=== PATIENT | male | born 1970 | race Caucasian/White ===

== ENCOUNTER → 2018-05-05 15:00 | Outpatient (CLI) | payer OTHER, SELFPAY | PROVIDERS: Family Provider Family Medicine; PCP Orthopaedic Surgery | DX: Z23 Encounter for immunization (principal) | CPT/HCPCS: 90471; 90686 ==

== ENCOUNTER → 2018-11-09 09:59 | Outpatient (CLI) | payer OTHER, MEDICAID, SELFPAY ==
[2018-11-09 10:56] LABS: Add Manual Diff / Slide Review NO; Basophils Absolute Auto 100 /uL (0-100); Basophils Percent Auto 0.6 % (0-2); Eosinophils Absolute Auto 400 /uL (0-450); Eosinophils Percent Auto 4.3 % (2-4); Hematocrit 41.6 % (41-53); Hemoglobin 13.5 g/dL (13.5-17.5); Lymphocytes Absolute Auto 2900 /uL (1100-4500); Lymphocytes Percent Auto 31.6 % (25-40); Mean Corpuscular HGB Conc 32.4 % (30-36); Mean Corpuscular Hemoglobin 28.2 PG (26-34); Monocytes Absolute Auto 700 /uL (0-900); Monocytes Percent Auto 7.4 % (3-14); Neutrophils Absolute Auto 5100 /uL (1500-7000); Neutrophils Percent Auto 56.1 % (50-75); Platelet Count 190 X10^3/uL (150-400); Red Blood Cell Count 4.78 X10^6/uL (4.5-5.9); Red Cell Distribution Width 14.3 % (11.6-14.8); White Blood Cell Count 9.1 X10^3/uL (4.5-11.0)
[2018-11-09 11:13] LABS: Alanine Aminotransferase 83 IU/L (21-72); Albumin 4.6 g/dL (3.5-5.0); Albumin Globulin Ratio 1.4 (1.0-2.8); Alkaline Phosphatase 77 U/L (38-126); Aspartate Aminotransferase 56 IU/L (17-59); BUN Creatinine Ratio 14.4 (6-22); Bilirubin Total 0.5 mg/dL (0.2-1.3); Blood Urea Nitrogen 13 mg/dL (9-20); Calcium 9.4 mg/dL (8.4-10.2); Carbon Dioxide 27 mmol/L (22-32); Chloride 102 mmol/L (98-107); Cholesterol 137 mg/dL (140-199); Estimated Glomerular Filt Rate > 60.0 mL/min (>60); Globulin 3.4 g/dL (1.7-4.1); Glucose 104 mg/dL (70-100); HDL Cholesterol 37 mg/dL (40-60); HEMOLYSIS < 15 (0-50); LDL Cholesterol Calculated 79 mg/dL (<100); Potassium 4.3 mmol/L (3.4-5.1); Sodium 140 mmol/L (137-145); Triglycerides 107 mg/dL (35-150)
[2018-11-09 11:27] LABS: Creatinine Urine Random 232.3 mg/dL
[2018-11-09 11:29] LABS: Microalbumi Creatinin Ratio Ur 3.4 ug/mg CR (<30); Microalbumin Urine Random 0.8 mg/dL (0-1.6)
[2018-11-09 11:52] LABS: TSH w/ Reflex to FT4 1.64 uIU/mL (0.47-4.68)
[2018-11-09 14:36] LABS: Hemoglobin A1C% w Est Avg Glu 7.2 % (4.0-6.0)
== END ==
PROVIDERS: PCP Family Medicine; Visit Provider Family Medicine
DX: E78.00 Pure hypercholesterolemia, unspecified (principal); I10 Essential (primary) hypertension; R73.01 Impaired fasting glucose; R94.5 Abnormal results of liver function studies; R73.9 Hyperglycemia, unspecified
CPT/HCPCS: 36415; 80053; 80061; 82043; 82570; 83036; 84443; 85025

== ENCOUNTER → 2019-02-08 09:32 | Outpatient (CLI) | payer OTHER, MEDICAID, SELFPAY ==
[2019-02-08 10:13] LABS: Hemoglobin A1C% w Est Avg Glu 5.6 % (4.0-6.0)
== END ==
PROVIDERS: PCP Family Medicine; Visit Provider Family Medicine
DX: E11.9 Type 2 diabetes mellitus without complications (principal)
CPT/HCPCS: 36415; 83036

== ENCOUNTER → 2019-04-12 09:02 | Outpatient (CLI) | payer OTHER, MEDICAID, SELFPAY | PROVIDERS: PCP Family Medicine; Visit Provider Family Medicine | DX: E11.9 Type 2 diabetes mellitus without complications (principal) | CPT/HCPCS: 36415; 83036 ==

== ENCOUNTER → 2019-07-12 17:23 | Outpatient (CLI) | payer OTHER, SELFPAY ==
[2019-07-12 18:17] LABS: BUN Creatinine Ratio 18.8 (6-22); Blood Urea Nitrogen 15 mg/dL (9-20); Calcium 10.2 mg/dL (8.4-10.2); Carbon Dioxide 26 mmol/L (22-32); Chloride 102 mmol/L (98-107); Estimated Glomerular Filt Rate > 60.0 mL/min (>60); Glucose 148 mg/dL (70-100); HEMOLYSIS < 15 (0-50); Potassium 4.1 mmol/L (3.4-5.1); Sodium 139 mmol/L (137-145)
[2019-07-12 18:19] LABS: Hemoglobin A1C% w Est Avg Glu 7.7 % (4.0-6.0)
== END ==
PROVIDERS: PCP Family Medicine; Visit Provider Family Medicine
DX: E11.9 Type 2 diabetes mellitus without complications (principal); E66.01 Morbid (severe) obesity due to excess calories
CPT/HCPCS: 36415; 80048; 83036

== ENCOUNTER 2019-10-04 10:41 | Emergency (ER) | payer OTHER, SELFPAY ==
[2019-10-04 10:56] VITALS: BP 163/74; PULSE 81; RESP 18; TEMP 36.4; O2SAT 96; BMI 47.5
--- NOTE | 2019-10-04 11:56 | ED.BACK ---
HPI - Back Pain/Injury <CHIKIS Pruett - Last Filed: 10/04/19 13:45> General Chief Complaint: Back Pain/Injury Stated Complaint: weakness in legs/back pain Time Seen by Provider: 10/04/19 11:23 Source: patient Mode of arrival: Ambulatory Limitations: no limitations History of Present Illness HPI Narrative: This is a 49-year-old gentleman, nonsmoker, who presents to ED with family with chief complain of bilateral leg weakness. Patient has history of low back injury and had laminectomy and fusion done on L3-S1 [place] [address] Beaver. Patient reports he had intense physical therapy completed after then. Patient recently returned to work in March 2019 and has been having bilateral weakness about 2 weeks ago when he woke up in the morning. This had improved about 4-5 hours after on that morning and was able to ambulate. Patient has an appointment with Dr. méndez on 10/13/19 for an evaluation. He was instructed if he has weakness again to going into ED by Dr. worthington clinic nurse. Patient had another episode of bilateral weakness since 5:00 a.m. in the morning this morning and almost fell twice. Patient reports intact sensation, denies incontinence for urinary or stool. Patient reports increasing back pain with lifting legs which is causing bilateral inner thigh discomfort. Patient is able to gentle early rotate his upper body and forward flex and extend his back but with decreased range of motion. Patient also reports intermittent right upper thigh tremors. Patient reports he is ambulatory but noticed bilateral foot dragging and has to lean forward. Patient reports a pain increases is walking on a hard floor and sitting on chair prolonged period. Pain improves with resting on a recliner not for a prolonged time. Patient denies fever, chills, nausea or vomiting. Patient has history of hypertension, diabetes type 2, hyper cholesterol, depression and anxiety. Related Data Home Medications Medication Instructions Recorded Confirmed aspirin 81 mg tablet,delayed 81 mg PO DAILY 11/09/18 10/04/19 release Resmed Airsense 10 CPAP #1 ea 01/04/19 10/04/19 atorvastatin 40 mg PO BEDTIME 10/04/19 10/04/19 hydroxyzine HCl 50 - 100 mg PO BEDTIME PRN 10/04/19 10/04/19 sertraline 50 mg PO QPM 10/04/19 10/04/19 Previous Rx's Medication Instructions Recorded amlodipine 10 mg tablet 10 mg PO DAILY #90 tab 07/12/19 losartan 50 mg tablet 50 mg PO BID #180 tab 07/12/19 metformin 500 mg tablet 500 mg PO BID #60 tab 07/26/19 cyclobenzaprine 10 mg PO BID PRN #20 tab 10/04/19 lidocaine 2 patch TOP Q24H #30 each 10/04/19 prednisone 40 mg PO DAILY 5 Days #8 tab 10/04/19 Allergies Allergy/AdvReac Type Severity Reaction Status Date / Time No Known Drug Allergies Allergy Verified 10/04/19 10:56 Review of Systems <CHIKIS Pruett - Last Filed: 10/04/19 13:45> Review of Systems Narrative: General: Denies fever, chills, fatigue, malaise, sweats. HEENT: Denies sinus pain, ear pain, sore throat, difficulty swallowing, dizziness. Respiratory: Denies dyspnea, cough, wheezing, hemoptysis, sputum. Cardiovascular: Denies chest pain, palpitations, orthopnea, edema. Gastrointestinal: Denies nausea, vomiting, abdominal pain, diarrhea, constipation, melena. : Denies dysuria, frequency, incontinence, hematuria, urinary retention. Musculoskeletal: See HPI Skin: Denies rash, skin lesions, or other. Neurologic: Denies weakness, headache, numbness, change in speech, confusion, seizures, incoordination. Psychiatric: No concerning psychosocial issues. 12-point review of systems is negative except for those stated above. Patient History <CHIKIS Pruett - Last Filed: 10/04/19 13:45> Medical History Coronary artery disease involving coronary bypass graft of [place] heart without angina pectoris (Inactive 03/27/16) Essential hypertension (Chronic 09/14/13) Lumbar radiculopathy (Chronic) Morbid obesity with body mass index of 40.0-49.9 (Chronic) Obstructive sleep apnea of adult (Chronic) Pure hypercholesterolemia (Chronic 03/27/16) Status post lumbar laminectomy (Resolved 03/27/16) Steatosis of liver (Chronic 09/14/13) Surgical History History of vasectomy Status post coronary artery bypass graft Family History Father Diabetes mellitus Gout Hypertension Social History marital status: details: to Yue, lives in [place] number of children: 2 household members: spouse and children lives independently: Yes caregiver/support person: No housing: house education level: college occupational status: employed current occupational exposures/hazards: Yes ([employer]) Smoking Status: Never smoker alcohol intake: never substance use type: does not use Smoking Status: Never smoker Exam <CHIKIS Pruett - Last Filed: 10/04/19 13:45> Narrative Exam Narrative: GEN: Alert, oriented x 3, well appearing and nourished, and in no acute distress. Head: Normal cephalic, atraumatic. No scalp or temporal tenderness, palpable mass or rash. EYES: Pupils are equal, round, and reactive to light and accommodation. Extraocular muscles are intact bilaterally. There is no subconjunctival hemorrhage, exudate and sclera non-icteric. ENT: Bilateral auditory canals and tympanic membranes clear. Hearing grossly intact. Nose without bleeding, purulent discharge or deviation. Facial sinuses nontender to palpate. Mucous membrane moist, no mucosal lesion. Throat without erythema, tonsillar hypertrophy or exudate. Uvula in midline, airway patent. Neck: Trachea in midline. No JVD, non-tender without lymphadenopathy. No masses or thyroid megaly. Supple, non-tender and no meningeal signs. CARDIAC: Normal regular rate and rhythm without murmurs, gallops, or rubs. No chest wall tenderness. No peripheral edema, cyanosis or pallor. Capillary refill is less than 2 seconds. RESPIRATORY: Lungs are clear to auscultate bilaterally. No cough, wheezes, rales, or rhonchi. No stridor, respiratory distress, increase work of breathing, or accessary muscle used. ABD: Abdomen soft, nontender and non-distended. No guarding or rebound tenderness to palpate. Bowel sounds are normal in all 4 quadrants. There is no palpable masses or organomegaly. EXT: Full painless ROM of all extremities with no loss of sensation, strength, effusion or edema. SKIN: Warm, dry, normal color for patient. No erythema, lesions or rash over visible areas. NEUROLOGICAL: Alert and oriented to place, time and person. Sensation and motor function intact bilaterally. No facial droops, dysphasia. PSYCHIATRIC: Good judgement and reason, without hallucinations, abnormal affect or abnormal behaviors during the examination. Patient is not suicidal. Initial Vital Signs Initial Vital Signs: Vital Signs Temperature 97.6 F 10/04/19 10:56 Pulse Rate 81 10/04/19 10:56 Respiratory Rate 18 10/04/19 10:56 Blood Pressure 163/74 H 10/04/19 10:56 Pulse Oximetry 96 10/04/19 10:56 Back/Spine/Pelvis Back: normal to inspection Cervical Spine: cervical ROM normal Thoracic/Lumbar Spine: thoracic and lumbar spine normal to inspection, No mass, pain with thoraco-lumbar ROM, paraspinal tenderness (Lumbar spine, right-sided middle thoracic), thoraco-lumbar ROM limited (Due to discomfort, patient was able to rotate, extend, forward bend), No thoraco-lumbar spasm, thoracic spinal tenderness (From upper thoracic to lumbar), lumbar spinal tenderness, straight leg raise positive (This has caused discomfort in bilateral inner thighs with sharp pain) and other (Old surgical scar on lumbar region without signs and symptoms for infection) Other: Bilateral patella tendon reflex intact. Mild decreased strength on bilateral foot, ankle and upper legs. Sensation on bilateral leg intact. <Geoffrey Llanes DO - Last Filed: 10/04/19 14:18> Initial Vital Signs Initial Vital Signs: Vital Signs Temperature 97.6 F 10/04/19 10:56 Pulse Rate 81 10/04/19 10:56 Respiratory Rate 18 10/04/19 10:56 Blood Pressure 163/74 H 10/04/19 10:56 Pulse Oximetry 96 10/04/19 10:56 Scores <CHIKIS Pruett - Last Filed: 10/04/19 13:45> GCS [place] coma scale eye opening: Spontaneous Paulie coma scale verbal response: Orientated [place] coma scale motor response: Obey commands Paulie coma scale total score: 15 Course <CHIKIS Pruett - Last Filed: 10/04/19 13:45> Orders Ordered: Discontinued Medications Cyclobenzaprine HCl (Flexeril) 10 mg PO NOW ONE Stop: 10/04/19 12:16 Last Admin: 10/04/19 13:02 Dose: 10 mg Documented by: DANILO Lidocaine (Lidoderm) 2 each TOP NOW ONE Stop: 10/04/19 12:16 Last Admin: 10/04/19 13:01 Dose: 2 each Documented by: DANILO Prednisone (Deltasone) 40 mg PO NOW ONE Stop: 10/04/19 12:16 Last Admin: 10/04/19 13:02 Dose: 40 mg Documented by: DANILO Consultations Consultation #1: Dr. Beaver contacted for consult. Plan-treat his symptoms and prednisone for a short course and f/u with Dr. Beaver. Time: 12:20 Vital Signs Vital signs: Vital Signs - 8 hr 10/04/19 10:56 10/04/19 12:47 Temperature 97.6 F Pulse Rate 81 64 Respiratory Rate 18 18 Blood Pressure 163/74 H Blood Pressure [Left Arm] 129/78 Pulse Oximetry 96 95 <Geoffrey Llanes DO - Last Filed: 10/04/19 14:18> Orders Ordered: Discontinued Medications Cyclobenzaprine HCl (Flexeril) 10 mg PO NOW ONE Stop: 10/04/19 12:16 Last Admin: 10/04/19 13:02 Dose: 10 mg Documented by: DANILO Lidocaine (Lidoderm) 2 each TOP NOW ONE Stop: 10/04/19 12:16 Last Admin: 10/04/19 13:01 Dose: 2 each Documented by: DANILO Prednisone (Deltasone) 40 mg PO NOW ONE Stop: 10/04/19 12:16 Last Admin: 10/04/19 13:02 Dose: 40 mg Documented by: DANILO Vital Signs Vital signs: Vital Signs - 8 hr 10/04/19 10:56 10/04/19 12:47 Temperature 97.6 F Pulse Rate 81 64 Respiratory Rate 18 18 Blood Pressure 163/74 H Blood Pressure [Left Arm] 129/78 Pulse Oximetry 96 95 MDM - Back Pain/Injury <CHIKIS Pruett - Last Filed: 10/04/19 13:45> Differential Diagnosis Differential diagnosis: Likely lumbar radiculopathy, strain of lumbar region and other (Herniated lumbar disc) Medical Records Attestation: I reviewed the patient's medical records. MDM Narrative Medical decision making narrative: This is a 49-year-old male who has history of L3-S1 fusion and laminectomy in 2016. Patient recently has been having low back discomfort, spasming, bilateral weakness to his lower extremities which started 2 weeks ago but ambulatory today with dragging of foot bilaterally. Patient had return to work in March 2019. Patient denies recent injury, trauma. Patient denies constitutional symptoms. Patient denies incontinence for urine or stool, sensation involvement. Attempted to get MRI test on lumbar without IV contrast but due to patient's weight is overt limit this has been deferred. We discussed treating his symptoms for discomfort, spasm with medications including prednisone, Flexeril, and lidocaine patch and to follow-up with Dr. Beaver as scheduled or sooner and possible MRI test at [facility] imaging facility before to see Dr. Beaver. Dr. Beaver has contacted the the plan and he agrees. Informed patient and spouse regarding the plan and they agree and verbalized understanding. Return precautions were discussed with the patient. Discharge Plan Departure Patient Disposition: Home Clinical Impression: Lumbar radiculopathy Lower extremity weakness Qualifiers: Laterality: bilateral Qualified Code(s): R29.898 - Other symptoms and signs involving the musculoskeletal system Discharge Date/Time: 10/04/19 13:10 Instructions: DI for Low Back Pain, DI for Back Spasm Activity Restrictions/Additional Instructions: You have been diagnosed with [low back pain, spasm, and bilateral leg weakness. I spoke with Dr. Beaver today and he agrees with plan-treat your symptoms with medications including a short course of steroid]. What to do: *Take your medications as directed. Flexeril may cause drowsiness so please take precautions. Please continue to take Tylenol 652 1000 mg up to 4 times a day. Ibuprofen 400 mg to 800 mg up to 3 times a day with food to decrease inflammation and for pain. Lidocaine patch stays on 12 hours and off for 12 hours. Steroids daily for next 5 days. And we discussed this medications side effects. This medication has been transmitted to [facility] in and [place]. *Follow up with your primary care provider in 2-3 days, call for an appointment. Please contact Dr. worthington office if you can be seen sooner than . Let them know you were seen in the ED and that we asked you to be seen in follow up. *Return to ED if you have any new, worsening, or concerning symptoms, such as [fever, chills, nausea, vomiting, increasing weakness/sensation, incontinence, chest pain, breathing difficulty, or any acute concerns.]. Prescriptions: New cyclobenzaprine 10 mg tablet 10 mg PO BID PRN (Reason: muscle spasm) Qty: 20 RF: 0 prednisone 20 mg tablet 40 mg PO DAILY 5 Days Qty: 8 RF: 0 lidocaine 5 % adhesive patch,medicated 2 patch TOP Q24H Qty: 30 RF: 0 No Action metformin 500 mg tablet 500 mg PO BID Qty: 60 RF: 3 losartan 50 mg tablet 50 mg PO BID Qty: 180 RF: 3 amlodipine 10 mg tablet 10 mg PO DAILY Qty: 90 RF: 3 aspirin [Adult Low Dose Aspirin] 81 mg tablet,delayed release (DR/EC) 81 mg PO DAILY RF: 0 hydroxyzine HCl 25 mg tablet 50 - 100 mg PO BEDTIME PRN (Reason: Anxiety) RF: 0 atorvastatin 40 mg tablet 40 mg PO BEDTIME RF: 0 sertraline 50 mg tablet 50 mg PO QPM RF: 0 (DME) Resmed Airsense 10 CPAP Qty: 1 RF: 0 Referrals: Fernando Wynn MD [Primary Care Provider] - <Geoffrey Llanes, DO - Last Filed: 10/04/19 14:18> Sign Out Provider Sign Out Attestation: Dr Llanes Co-Sign Statement: I was available for consultation during this patient's emergency department visit. This chart is signed by myself for administrative purposes only. I did not have direct contact with this patient during this visit. They were seen independently by the APC.
[2019-10-04 12:47] VITALS: BP 129/78; PULSE 64; RESP 18; O2SAT 95
[2019-10-04] MEDS: LIDOCAINE PATCH 1 EACH ADH..PATCH 2 EACH TOP (13:01)
[2019-10-04] MEDS: predniSONE 20 MG TABLET 40 MG PO (13:02)
[2019-10-04] MEDS: CYCLOBENZAPRINE 10 MG TABLET PO (13:02)
== END 2019-10-04 13:10 | disposition home or self-care (01) ==
PROVIDERS: Emergency Provider Nurse Practitioner Family; PCP Family Medicine
DX: M54.16 Radiculopathy, lumbar region (principal); R29.898 Other symptoms and signs involving the musculoskeletal system
CPT/HCPCS: 99283

== ENCOUNTER → 2020-01-13 09:40 | Outpatient (CLI) | payer OTHER, SELFPAY ==
[2020-01-13 10:28] LABS: Hemoglobin A1C% w Est Avg Glu 10.3 % (4.0-6.0)
[2020-01-13 11:09] LABS: BUN Creatinine Ratio 14.7 (6-22); Blood Urea Nitrogen 11 mg/dL (9-20); Calcium 9.8 mg/dL (8.4-10.2); Carbon Dioxide 23 mmol/L (22-32); Chloride 101 mmol/L (98-107); Estimated Glomerular Filt Rate > 60.0 mL/min (>60); Glucose 248 mg/dL (70-100); HEMOLYSIS < 15 (0-50); Potassium 4.5 mmol/L (3.4-5.1); Sodium 135 mmol/L (137-145)
== END ==
PROVIDERS: PCP Family Medicine; Referring Provider Family Medicine; Visit Provider Family Medicine
DX: E11.9 Type 2 diabetes mellitus without complications (principal); I10 Essential (primary) hypertension
CPT/HCPCS: 36415; 80048; 83036

== ENCOUNTER → 2020-04-14 10:34 | Outpatient (CLI) | payer OTHER, MEDICAID, SELFPAY ==
[2020-04-14 12:43] LABS: Hemoglobin A1C% w Est Avg Glu 7.1 % (4.0-6.0)
[2020-04-14 13:03] LABS: Creatinine Urine Random 157.6 mg/dL
[2020-04-14 13:12] LABS: Microalbumi Creatinin Ratio Ur 3.8 ug/mg CR (<30); Microalbumin Urine Random < 0.6 mg/dL (0-1.6)
[2020-04-14 14:24] LABS: BUN Creatinine Ratio 14.1 (6-22); Blood Urea Nitrogen 14 mg/dL (9-20); Calcium 9.9 mg/dL (8.4-10.2); Carbon Dioxide 25 mmol/L (22-32); Chloride 100 mmol/L (98-107); Estimated Glomerular Filt Rate > 60.0 mL/min (>60); Glucose 114 mg/dL (70-100); HEMOLYSIS < 15 (0-50); Potassium 4.6 mmol/L (3.4-5.1); Sodium 136 mmol/L (137-145)
== END ==
PROVIDERS: PCP Family Medicine; Referring Provider Family Medicine; Visit Provider Family Medicine
DX: E11.9 Type 2 diabetes mellitus without complications (principal); E66.01 Morbid (severe) obesity due to excess calories; E78.5 Hyperlipidemia, unspecified; I10 Essential (primary) hypertension
CPT/HCPCS: 36415; 80048; 82043; 82570; 83036

== ENCOUNTER → 2020-06-09 11:46 | Outpatient (CLI) | payer OTHER, SELFPAY ==
--- NOTE | 2020-06-09 | DI.CT.S_ITS ---
PROCEDURE: CT LUMBAR SPINE WO CON INDICATIONS: Spondylolysis, lumbar region TECHNIQUE: Noncontrast 3 mm thick sections acquired from the T12 level to the sacrum. Sagittal and coronal reformats were constructed. For radiation dose reduction, the following was used: automated exposure control. COMPARISON: [facility] [place], [place], SPINE LUMB 2 OR 3VW, 05/22/2016, 9:16. [facility], CR, SPINE LUMB 2 OR 3VW, 08/21/2016, 9:31. [facility] [place], CR, XR LUMBAR SPINE 2 OR 3 VIEWS, 06/10/2018, 14:04. [facility], MR, MR LUMBAR SPINE WITHOUT CONTRAST, 10/22/2019, 10:37. FINDINGS: Image quality: Excellent. Bones: Postsurgical changes compatible with L5-S1 TLIF with left posterior fixation hardware and intervertebral disc spacer. There is trace L5-S1 anterolisthesis. Bilateral L5 pars interarticularis defects. No acute vertebral body compression fractures. No suspicious lytic or blastic bony lesions. Central spinal caliber is of normal overall caliber. No pars defects. T12-L1: Disc height is normal. No central stenosis. No neural foraminal narrowing. No neural compression. L1-L2: Disc height is normal. Mild, diffuse disc bulge. Small central disc protrusion. Mild to moderate narrowing of the central canal. Mild bilateral neural foraminal narrowing. No neural compression. L2-L3: Disc height is normal. Mild, diffuse disc bulge. Mild narrowing of the central canal. Moderate right and mild left neural foraminal narrowing. No neural compression. L3-L4: Disc height is normal. Mild to moderate diffuse disc bulge. Small central disc protrusion. Mild bilateral facet hypertrophy. Moderate narrowing of the central canal. Moderate bilateral neural foraminal narrowing. No neural compression. L4-L5: Loss of disc signal and slight loss of disc height. Moderate, diffuse disc bulge. Small right central disc extrusion. Mild right and moderate left facet hypertrophy. Moderate narrowing of the central canal. Severe bilateral neural foraminal narrowing with slight compression of the exiting bilateral L4 nerve roots. L5-S1: Status post fusion. Mild, diffuse disc bulge. Moderate bilateral facet hypertrophy. No central stenosis. Severe bilateral neural foraminal narrowing with marked compression of the exiting L5 nerve roots. Soft tissues: No retroperitoneal masses or hematomas. Visualized aorta is normal in caliber. IMPRESSION: 1. Status post L5-S1 TLIF. 2. Multilevel degenerative disease. 3. Multilevel facet arthropathy. 4. Moderate L3-L4 and L4-L5 central canal narrowing. Mild to moderate L1-L2 central canal narrowing. Mild L2-L3 central canal narrowing. 5. Severe bilateral L4-L5 and L5-S1 neural foraminal narrowing. Moderate bilateral L3-L4 neural foraminal narrowing. Moderate right and mild left L2-L3 neural foraminal narrowing. Mild bilateral L1-L2 neural foraminal narrowing. 6. Small right central L4-L5 disc extrusion. Extruded disc material may impinge upon traversing nerve roots. 7. Marked compression of the exiting bilateral L5 nerve roots and slight compression of the exiting bilateral L4 nerve roots secondary to neural foraminal narrowing. Dictated by: Mya Cordero MD, PhD on 06/09/2020 at 12:14 Approved by: Mya Cordero MD, PhD on 06/09/2020 at 12:31
== END ==
PROVIDERS: PCP Family Medicine; Referring Provider Orthopaedic Surgery; Visit Provider Orthopaedic Surgery
DX: M43.06 Spondylolysis, lumbar region (principal); M51.36 Other intervertebral disc degeneration, lumbar region; M51.26 Other intervertebral disc displacement, lumbar region; M47.816 Spondylosis without myelopathy or radiculopathy, lumbar region; M48.061 Spinal stenosis, lumbar region without neurogenic claudication; Z98.1 Arthrodesis status
CPT/HCPCS: 72131

== ENCOUNTER → 2020-07-14 09:37 | Outpatient (CLI) | payer OTHER, MEDICAID, SELFPAY ==
[2020-07-14 11:09] LABS: BUN Creatinine Ratio 18.8 (6-22); Blood Urea Nitrogen 18 mg/dL (9-20); Calcium 9.8 mg/dL (8.4-10.2); Carbon Dioxide 27 mmol/L (22-32); Chloride 103 mmol/L (98-107); Estimated Glomerular Filt Rate > 60.0 mL/min (>60); Glucose 111 mg/dL (70-100); HEMOLYSIS < 15 (0-50); Potassium 4.2 mmol/L (3.4-5.1); Sodium 138 mmol/L (137-145)
== END ==
PROVIDERS: PCP Family Medicine; Referring Provider Family Medicine; Visit Provider Family Medicine
DX: E11.9 Type 2 diabetes mellitus without complications (principal); E78.5 Hyperlipidemia, unspecified; I10 Essential (primary) hypertension
CPT/HCPCS: 36415; 80048

== ENCOUNTER → 2020-07-24 08:39 | Outpatient (CLI) | payer OTHER, SELFPAY ==
[2020-07-24 09:50] LABS: Add Manual Diff / Slide Review NO; Basophils Absolute Auto 0 /uL (0-100); Basophils Percent Auto 0.5 % (0-2); Eosinophils Absolute Auto 400 /uL (0-450); Eosinophils Percent Auto 4.1 % (2-4); Hematocrit 40.8 % (41-53); Hemoglobin 13.5 g/dL (13.5-17.5); Lymphocytes Absolute Auto 2700 /uL (1100-4500); Lymphocytes Percent Auto 29.7 % (25-40); Mean Corpuscular Hemoglobin 28.3 PG (26-34); Mean Corpuscular Volume 85.7 fL (80-100); Monocytes Absolute Auto 800 /uL (0-900); Monocytes Percent Auto 8.5 % (3-14); Neutrophils Absolute Auto 5200 /uL (1500-7000); Neutrophils Percent Auto 57.2 % (50-75); Platelet Count 212 X10^3/uL (150-400); Red Blood Cell Count 4.76 X10^6/uL (4.5-5.9); Red Cell Distribution Width 14.7 % (11.6-14.8); White Blood Cell Count 9.1 X10^3/uL (4.5-11.0)
== END ==
PROVIDERS: PCP Family Medicine; Referring Provider Orthopaedic Surgery; Visit Provider Orthopaedic Surgery
DX: Z01.812 Encounter for preprocedural laboratory examination (principal)
CPT/HCPCS: 36415; 85025

== ENCOUNTER → 2020-07-31 15:05 | Outpatient (CLI) | payer OTHER, SELFPAY ==
[2020-07-31 17:31] LABS: COVID19 -Nasal RAPID Negative (Negative)
== END ==
PROVIDERS: PCP Family Medicine; Visit Provider Physician Assistant
DX: Z11.59 Encounter for screening for other viral diseases (principal)
CPT/HCPCS: 87635

== ENCOUNTER → 2021-01-12 08:05 | Outpatient (CLI) | payer OTHER, MEDICAID, SELFPAY ==
[2021-01-12 08:59] LABS: Add Manual Diff / Slide Review NO; Basophils Absolute Auto 100 /uL (0-100); Basophils Percent Auto 0.6 % (0-2); Eosinophils Absolute Auto 400 /uL (0-450); Eosinophils Percent Auto 3.6 % (2-4); Hematocrit 40.5 % (41-53); Hemoglobin 13.4 g/dL (13.5-17.5); Lymphocytes Absolute Auto 2600 /uL (1100-4500); Lymphocytes Percent Auto 25.2 % (25-40); Mean Corpuscular HGB Conc 33.1 % (30-36); Mean Corpuscular Hemoglobin 28.2 PG (26-34); Mean Corpuscular Volume 85.3 fL (80-100); Monocytes Absolute Auto 800 /uL (0-900); Monocytes Percent Auto 7.9 % (3-14); Neutrophils Absolute Auto 6400 /uL (1500-7000); Neutrophils Percent Auto 62.7 % (50-75); Platelet Count 195 X10^3/uL (150-400); Red Blood Cell Count 4.74 X10^6/uL (4.5-5.9); Red Cell Distribution Width 15.7 % (11.6-14.8); White Blood Cell Count 10.3 X10^3/uL (4.5-11.0)
[2021-01-12 09:07] LABS: Hemoglobin A1C% w Est Avg Glu 6.1 % (4.0-6.0)
[2021-01-12 09:38] LABS: Alanine Aminotransferase 147 IU/L (<50); Albumin 4.8 g/dL (3.5-5.0); Albumin Globulin Ratio 1.5 (1.0-2.8); Alkaline Phosphatase 96 U/L (38-126); Aspartate Aminotransferase 100 IU/L (17-59); BUN Creatinine Ratio 24.7 (6-22); Bilirubin Total 0.4 mg/dL (0.2-1.3); Blood Urea Nitrogen 22 mg/dL (9-20); Carbon Dioxide 21 mmol/L (22-32); Chloride 104 mmol/L (98-107); Cholesterol 222 mg/dL (140-199); Estimated Glomerular Filt Rate > 60.0 mL/min (>60); Globulin 3.2 g/dL (1.7-4.1); Glucose 113 mg/dL (70-100); HDL Cholesterol 44 mg/dL (40-60); HEMOLYSIS < 15 (0-50); LDL Cholesterol Calculated 114 mg/dL (<100); Potassium 4.4 mmol/L (3.4-5.1); Sodium 138 mmol/L (137-145); Triglycerides 319 mg/dL (35-150)
[2021-01-12 10:11] LABS: TSH w/ Reflex to FT4 1.96 uIU/mL (0.47-4.68)
[2021-01-12 11:05] LABS: Creatinine Urine Random 247.5 mg/dL
== END ==
PROVIDERS: PCP Family Medicine; Referring Provider Family Medicine; Visit Provider Family Medicine
DX: E11.9 Type 2 diabetes mellitus without complications (principal); E66.01 Morbid (severe) obesity due to excess calories; E78.00 Pure hypercholesterolemia, unspecified; I10 Essential (primary) hypertension; I25.810 Atherosclerosis of coronary artery bypass graft(s) without angina pectoris
CPT/HCPCS: 36415; 80053; 80061; 82043; 82570; 83036; 84443; 85025

== ENCOUNTER → 2021-07-06 09:47 | Outpatient (CLI) | payer OTHER, MEDICAID, SELFPAY ==
[2021-07-06 10:54] LABS: Hemoglobin A1C% w Est Avg Glu 7.8 % (4.0-6.0)
[2021-07-06 12:07] LABS: Alanine Aminotransferase 180 IU/L (<50); Aspartate Aminotransferase 147 IU/L (17-59)
== END ==
PROVIDERS: PCP Family Medicine; Referring Provider Family Medicine; Visit Provider Family Medicine
DX: E11.9 Type 2 diabetes mellitus without complications (principal); R94.5 Abnormal results of liver function studies
CPT/HCPCS: 36415; 83036; 84450; 84460

== ENCOUNTER → 2021-07-10 11:22 | Outpatient (CLI) | payer OTHER, MEDICAID, SELFPAY ==
[2021-07-10 13:51] LABS: Vitamin B12 624 pg/mL (239-931)
== END ==
PROVIDERS: PCP Family Medicine; Referring Provider Physician Assistant; Visit Provider Physician Assistant
DX: M79.604 Pain in right leg (principal); M79.605 Pain in left leg; R29.898 Other symptoms and signs involving the musculoskeletal system
CPT/HCPCS: 36415; 82607

== ENCOUNTER → 2021-11-08 07:56 | Outpatient (CLI) | payer OTHER, SELFPAY ==
[2021-11-08 09:20] LABS: Alanine Aminotransferase 138 IU/L (<50); Albumin 4.9 g/dL (3.5-5.0); Albumin Globulin Ratio 1.4 (1.0-2.8); Alkaline Phosphatase 108 U/L (38-126); Aspartate Aminotransferase 109 IU/L (17-59); BUN Creatinine Ratio 15.8 (6-22); Bilirubin Total 0.8 mg/dL (0.2-1.3); Blood Urea Nitrogen 12 mg/dL (9-20); Calcium 9.5 mg/dL (8.4-10.2); Carbon Dioxide 27 mmol/L (22-32); Chloride 100 mmol/L (98-107); Cholesterol 136 mg/dL (140-199); Estimated Glomerular Filt Rate > 60.0 mL/min (>60); Globulin 3.6 g/dL (1.7-4.1); Glucose 292 mg/dL (70-100); HDL Cholesterol 35 mg/dL (40-60); HEMOLYSIS < 15 (0-50); LDL Cholesterol Calculated 74 mg/dL (<100); Potassium 4.1 mmol/L (3.4-5.1); Sodium 138 mmol/L (137-145); Total Protein 8.5 g/dL (6.3-8.2); Triglycerides 137 mg/dL (35-150)
[2021-11-08 09:24] LABS: Hemoglobin A1C% w Est Avg Glu 10.8 % (4.0-6.0)
[2021-11-08 10:37] LABS: Creatinine Urine Random 242.7 mg/dL
[2021-11-08 10:39] LABS: Microalbumi Creatinin Ratio Ur 20.6 ug/mg CR (<30)
[2021-11-08 11:03] LABS: Thyroid Stimulating Hormone 1.89 uIU/mL (0.47-4.68)
== END ==
PROVIDERS: Family Provider Family Medicine; PCP Family Medicine; Referring Provider Physician Assistant; Visit Provider Physician Assistant
DX: E11.65 Type 2 diabetes mellitus with hyperglycemia (principal); E78.00 Pure hypercholesterolemia, unspecified; I10 Essential (primary) hypertension; K76.0 Fatty (change of) liver, not elsewhere classified; R94.5 Abnormal results of liver function studies
CPT/HCPCS: 36415; 80053; 80061; 82043; 82570; 83036; 84443

== ENCOUNTER → 2021-12-17 07:58 | Outpatient (CLI) | payer OTHER, SELFPAY ==
[2021-12-17 08:52] LABS: Hemoglobin A1C% w Est Avg Glu 9.4 % (4.0-6.0)
[2021-12-17 08:58] LABS: BUN Creatinine Ratio 18.8 (6-22); Blood Urea Nitrogen 16 mg/dL (9-20); Calcium 8.9 mg/dL (8.4-10.2); Carbon Dioxide 23 mmol/L (22-32); Chloride 107 mmol/L (98-107); Estimated Glomerular Filt Rate > 60 mL/min (>60); Glucose 168 mg/dL (70-100); HEMOLYSIS < 15 (0-50); Sodium 140 mmol/L (137-145)
== END ==
PROVIDERS: Family Provider Family Medicine; PCP Family Medicine; Referring Provider Physician Assistant; Visit Provider Physician Assistant
DX: E11.65 Type 2 diabetes mellitus with hyperglycemia (principal)
CPT/HCPCS: 36415; 80048; 83036

== ENCOUNTER → 2022-02-11 07:56 | Outpatient (CLI) | payer OTHER, SELFPAY ==
[2022-02-11 09:41] LABS: Hemoglobin A1C% w Est Avg Glu 8.3 % (4.0-6.0)
== END ==
PROVIDERS: Family Provider Family Medicine; PCP Family Medicine; Referring Provider Physician Assistant; Visit Provider Physician Assistant
DX: E11.65 Type 2 diabetes mellitus with hyperglycemia (principal)
CPT/HCPCS: 36415; 83036

== ENCOUNTER → 2022-05-10 07:55 | Outpatient (CLI) | payer OTHER, SELFPAY ==
[2022-05-10 08:47] LABS: Hemoglobin A1C% w Est Avg Glu 7.7 % (4.0-6.0)
== END ==
PROVIDERS: Family Provider Family Medicine; PCP Family Medicine; Referring Provider Physician Assistant; Visit Provider Physician Assistant
DX: E11.65 Type 2 diabetes mellitus with hyperglycemia (principal)
CPT/HCPCS: 36415; 83036

== ENCOUNTER → 2022-08-02 07:56 | Outpatient (CLI) | payer OTHER, SELFPAY ==
[2022-08-02 09:25] LABS: Hemoglobin A1C% w Est Avg Glu 7.8 % (4.0-6.0)
[2022-08-02 10:21] LABS: Alanine Aminotransferase 77 IU/L (<50); Albumin 4.6 g/dL (3.5-5.0); Albumin Globulin Ratio 1.5 (1.0-2.8); Alkaline Phosphatase 87 U/L (38-126); Aspartate Aminotransferase 54 IU/L (17-59); BUN Creatinine Ratio 22.2 (6-22); Bilirubin Total 0.6 mg/dL (0.2-1.3); Blood Urea Nitrogen 16 mg/dL (9-20); Calcium 9.2 mg/dL (8.4-10.2); Carbon Dioxide 23 mmol/L (22-32); Chloride 105 mmol/L (98-107); Cholesterol 139 mg/dL (140-199); Estimated Glomerular Filt Rate > 60 mL/min (>60); Glucose 150 mg/dL (70-100); HDL Cholesterol 40 mg/dL (40-60); HEMOLYSIS < 15 (0-50); LDL Cholesterol Calculated 74 mg/dL (<100); Potassium 4.3 mmol/L (3.4-5.1); Sodium 139 mmol/L (137-145); Total Protein 7.6 g/dL (6.3-8.2); Triglycerides 123 mg/dL (35-150)
== END ==
PROVIDERS: Family Provider Family Medicine; PCP Family Medicine; Referring Provider Physician Assistant; Visit Provider Physician Assistant
DX: E11.65 Type 2 diabetes mellitus with hyperglycemia (principal); E78.00 Pure hypercholesterolemia, unspecified; I10 Essential (primary) hypertension
CPT/HCPCS: 80053; 80061; 83036

== ENCOUNTER → 2022-10-31 09:59 | Outpatient (CLI) | payer OTHER, SELFPAY ==
[2022-10-31 11:44] LABS: Hemoglobin A1C% w Est Avg Glu 7.5 % (4.0-6.0)
== END ==
PROVIDERS: Family Provider Family Medicine; PCP Family Medicine; Referring Provider Physician Assistant; Visit Provider Physician Assistant
DX: E11.9 Type 2 diabetes mellitus without complications (principal); G47.33 Obstructive sleep apnea (adult) (pediatric)
CPT/HCPCS: 36415; 83036

== ENCOUNTER → 2023-01-31 08:09 | Outpatient (CLI) | payer OTHER, SELFPAY ==
[2023-01-31 09:02] LABS: Add Manual Diff / Slide Review NO; Basophils Absolute Auto 100 /uL (0-100); Basophils Percent Auto 0.7 % (0-2); Eosinophils Absolute Auto 400 /uL (0-450); Eosinophils Percent Auto 4.2 % (2-4); Hematocrit 39.8 % (41-53); Hemoglobin 13.2 g/dL (13.5-17.5); Lymphocytes Absolute Auto 2400 /uL (1100-4500); Lymphocytes Percent Auto 24.7 % (25-40); Mean Corpuscular HGB Conc 33.3 % (30-36); Mean Corpuscular Hemoglobin 27.1 PG (26-34); Mean Corpuscular Volume 81.4 fL (80-100); Monocytes Absolute Auto 700 /uL (0-900); Monocytes Percent Auto 7.3 % (3-14); Neutrophils Absolute Auto 6000 /uL (1500-7000); Neutrophils Percent Auto 63.1 % (50-75); Platelet Count 187 X10^3/uL (150-400); Red Blood Cell Count 4.89 X10^6/uL (4.5-5.9); White Blood Cell Count 9.5 X10^3/uL (4.5-11.0)
[2023-01-31 09:13] LABS: Alanine Aminotransferase 48 IU/L (<50); Albumin 4.7 g/dL (3.5-5.0); Albumin Globulin Ratio 1.4 (1.0-2.8); Alkaline Phosphatase 85 U/L (38-126); Aspartate Aminotransferase 49 IU/L (17-59); BUN Creatinine Ratio 21.9 (6-22); Bilirubin Total 0.8 mg/dL (0.2-1.3); Blood Urea Nitrogen 16 mg/dL (9-20); Calcium 9.2 mg/dL (8.4-10.2); Carbon Dioxide 24 mmol/L (22-32); Chloride 102 mmol/L (98-107); Cholesterol 141 mg/dL (140-199); Estimated Glomerular Filt Rate > 60 mL/min (>60); Globulin 3.4 g/dL (1.7-4.1); Glucose 144 mg/dL (70-100); HDL Cholesterol 38 mg/dL (40-60); HEMOLYSIS < 15 (0-50); LDL Cholesterol Calculated 75 mg/dL (<100); Potassium 4.1 mmol/L (3.4-5.1); Sodium 138 mmol/L (137-145); Total Protein 8.1 g/dL (6.3-8.2); Triglycerides 139 mg/dL (35-150)
[2023-01-31 09:43] LABS: TSH w/ Reflex to FT4 1.86 uIU/mL (0.47-4.68)
[2023-02-01 03:36] LABS: Labcorp Hemoglobin (Hb) A1c 7.3 % (4.8-5.6)
== END ==
PROVIDERS: Family Provider Family Medicine; PCP Family Medicine; Referring Provider Physician Assistant; Visit Provider Physician Assistant
DX: E11.65 Type 2 diabetes mellitus with hyperglycemia (principal); E11.9 Type 2 diabetes mellitus without complications; E78.00 Pure hypercholesterolemia, unspecified; I10 Essential (primary) hypertension; I25.810 Atherosclerosis of coronary artery bypass graft(s) without angina pectoris; K76.0 Fatty (change of) liver, not elsewhere classified
CPT/HCPCS: 36415; 80053; 80061; 83036; 84443; 85025

== ENCOUNTER → 2023-05-06 08:00 | Outpatient (CLI) | payer OTHER, SELFPAY ==
[2023-05-06 09:06] LABS: Hemoglobin A1C% w Est Avg Glu 6.9 % (4.0-6.0)
== END ==
PROVIDERS: Family Provider Family Medicine; PCP Family Medicine; Referring Provider Physician Assistant; Visit Provider Physician Assistant
DX: E11.44 Type 2 diabetes mellitus with diabetic amyotrophy (principal); E11.9 Type 2 diabetes mellitus without complications
CPT/HCPCS: 36415; 83036

== ENCOUNTER → 2023-05-28 10:53 | Outpatient (CLI) | payer OTHER, SELFPAY ==
[2023-05-28 12:27] LABS: Add Manual Diff / Slide Review NO; Basophils Absolute Auto 0 /uL (0-100); Basophils Percent Auto 0.4 % (0-2); Eosinophils Absolute Auto 400 /uL (0-450); Eosinophils Percent Auto 4.5 % (2-4); Hematocrit 41.5 % (41-53); Hemoglobin 13.6 g/dL (13.5-17.5); Lymphocytes Absolute Auto 2600 /uL (1100-4500); Mean Corpuscular HGB Conc 32.8 % (30-36); Mean Corpuscular Hemoglobin 27.5 PG (26-34); Mean Corpuscular Volume 83.9 fL (80-100); Monocytes Absolute Auto 800 /uL (0-900); Monocytes Percent Auto 7.6 % (3-14); Neutrophils Absolute Auto 6100 /uL (1500-7000); Neutrophils Percent Auto 61.5 % (50-75); Platelet Count 192 X10^3/uL (150-400); Red Blood Cell Count 4.94 X10^6/uL (4.5-5.9); Red Cell Distribution Width 16.4 % (11.6-14.8); White Blood Cell Count 9.9 X10^3/uL (4.5-11.0)
[2023-05-28 12:46] LABS: HEMOLYSIS < 15 (0-50); Iron 60 ug/dL (49-181)
[2023-05-28 12:59] LABS: Percent Iron Saturation 13 % (20-50); Total Iron Binding Capacity 459 ug/dL (261-462); Transferrin 346 mg/dL (206-381)
[2023-05-28 13:20] LABS: Ferritin 8 ng/mL (18-464)
== END ==
PROVIDERS: Family Provider Family Medicine; PCP Family Medicine; Referring Provider Physician Assistant; Visit Provider Physician Assistant
DX: R79.89 Other specified abnormal findings of blood chemistry (principal); D64.9 Anemia, unspecified
CPT/HCPCS: 36415; 82728; 83540; 83550; 85025

== ENCOUNTER → 2023-10-22 08:03 | Outpatient (CLI) | payer OTHER, SELFPAY ==
[2023-10-22 10:11] LABS: BUN Creatinine Ratio 21.3 (6-22); Blood Urea Nitrogen 16 mg/dL (9-20); Calcium 9.4 mg/dL (8.4-10.2); Carbon Dioxide 21 mmol/L (22-32); Chloride 106 mmol/L (98-107); Cholesterol 114 mg/dL (140-199); Estimated Glomerular Filt Rate > 60 mL/min (>60); Glucose 150 mg/dL (70-100); HDL Cholesterol 40 mg/dL (40-60); HEMOLYSIS < 15 (0-50); LDL Cholesterol Calculated 51 mg/dL (<100); Potassium 4.5 mmol/L (3.4-5.1); Sodium 139 mmol/L (137-145); Triglycerides 114 mg/dL (35-150)
[2023-10-22 10:52] LABS: Microalbumin Urine Random 1.4 mg/dL (0-1.6)
[2023-10-22 10:55] LABS: Creatinine Urine Random 89.4 mg/dL; Microalbumi Creatinin Ratio Ur 15.6 ug/mg CR (<30)
[2023-10-22 11:40] LABS: Hemoglobin A1C% w Est Avg Glu 7.1 % (4.0-6.0)
== END ==
PROVIDERS: Physician Assistant; Family Provider Family Medicine; PCP Family Medicine; Referring Provider Family Medicine; Visit Provider Family Medicine
DX: E11.9 Type 2 diabetes mellitus without complications (principal); I10 Essential (primary) hypertension
CPT/HCPCS: 36415; 80048; 80061; 82043; 82570; 83036

== ENCOUNTER → 2023-11-04 09:44 | Outpatient (CLI) | payer OTHER, SELFPAY ==
[2023-11-04 10:56] LABS: Hematocrit 40.9 % (41-53); Hemoglobin 13.7 g/dL (13.5-17.5)
[2023-11-04 11:21] LABS: HEMOLYSIS < 15 (0-50); Iron 51 ug/dL (49-181)
[2023-11-04 11:32] LABS: Percent Iron Saturation 12 % (20-50); Total Iron Binding Capacity 435 ug/dL (261-462); Transferrin 347 mg/dL (206-381)
[2023-11-04 11:52] LABS: Ferritin 9 ng/mL (18-464)
== END ==
PROVIDERS: Family Provider Family Medicine; PCP Family Medicine; Referring Provider Physician Assistant; Visit Provider Physician Assistant
DX: D50.9 Iron deficiency anemia, unspecified (principal)
CPT/HCPCS: 36415; 82728; 83540; 83550; 85014; 85018

== ENCOUNTER → 2024-02-03 08:10 | Outpatient (CLI) | payer OTHER, SELFPAY ==
[2024-02-03 10:14] LABS: Add Manual Diff / Slide Review NO; Basophils Absolute Auto 100 /uL (0-100); Basophils Percent Auto 0.7 % (0-2); Eosinophils Absolute Auto 400 /uL (0-450); Eosinophils Percent Auto 4.5 % (2-4); Hematocrit 40.5 % (41-53); Hemoglobin 13.6 g/dL (13.5-17.5); Lymphocytes Absolute Auto 2400 /uL (1100-4500); Lymphocytes Percent Auto 24.8 % (25-40); Mean Corpuscular HGB Conc 33.5 % (30-36); Mean Corpuscular Hemoglobin 28.2 PG (26-34); Mean Corpuscular Volume 84.2 fL (80-100); Monocytes Absolute Auto 700 /uL (0-900); Monocytes Percent Auto 6.7 % (3-14); Neutrophils Absolute Auto 6200 /uL (1500-7000); Neutrophils Percent Auto 63.3 % (50-75); Platelet Count 179 X10^3/uL (150-400); Red Blood Cell Count 4.81 X10^6/uL (4.5-5.9); Red Cell Distribution Width 16.5 % (11.6-14.8); White Blood Cell Count 9.8 X10^3/uL (4.5-11.0)
[2024-02-03 10:37] LABS: Alanine Aminotransferase 40 IU/L (<50); Albumin 4.6 g/dL (3.5-5.0); Albumin Globulin Ratio 1.8 (1.0-2.8); Alkaline Phosphatase 83 U/L (38-126); Aspartate Aminotransferase 45 IU/L (17-59); BUN Creatinine Ratio 24.7 (6-22); Bilirubin Total 0.6 mg/dL (0.2-1.3); Blood Urea Nitrogen 19 mg/dL (9-20); Calcium 8.8 mg/dL (8.4-10.2); Carbon Dioxide 22 mmol/L (22-32); Chloride 105 mmol/L (98-107); Cholesterol 122 mg/dL (140-199); Estimated Glomerular Filt Rate > 60 mL/min (>60); Globulin 2.6 g/dL (1.7-4.1); Glucose 186 mg/dL (70-100); HDL Cholesterol 40 mg/dL (40-60); HEMOLYSIS < 15 (0-50); LDL Cholesterol Calculated 46 mg/dL (<100); Potassium 4.2 mmol/L (3.4-5.1); Sodium 137 mmol/L (137-145); Total Protein 7.2 g/dL (6.3-8.2); Triglycerides 182 mg/dL (35-150)
[2024-02-03 10:50] LABS: Creatinine Urine Random 100.11 mg/dL
[2024-02-03 10:57] LABS: Microalbumin Urine Random 0.7 mg/dL (0-1.6)
[2024-02-03 11:06] LABS: TSH w/ Reflex to FT4 1.71 uIU/mL (0.47-4.68)
== END ==
LOC: LAB 08:12
PROVIDERS: Family Provider Family Medicine; PCP Family Medicine; Referring Provider Physician Assistant; Visit Provider Physician Assistant
DX: I10 Essential (primary) hypertension (principal); E78.00 Pure hypercholesterolemia, unspecified; E11.9 Type 2 diabetes mellitus without complications
CPT/HCPCS: 36415; 80053; 80061; 82043; 82570; 83036; 84443; 85025

== ENCOUNTER → 2024-05-10 11:51 | Outpatient (CLI) | payer OTHER, SELFPAY ==
[2024-05-10 13:00] LABS: Hemoglobin A1C% w Est Avg Glu 6.7 % (4.0-6.0)
[2024-05-10 15:27] LABS: Alanine Aminotransferase 45 IU/L (<50); Albumin 4.7 g/dL (3.5-5.0); Albumin Globulin Ratio 1.5 (1.0-2.8); Alkaline Phosphatase 77 U/L (38-126); Aspartate Aminotransferase 51 IU/L (17-59); Bilirubin Total 0.8 mg/dL (0.2-1.3); Blood Urea Nitrogen 17 mg/dL (9-20); Calcium 9.8 mg/dL (8.4-10.2); Carbon Dioxide 22 mmol/L (22-32); Chloride 103 mmol/L (98-107); Estimated Glomerular Filt Rate > 60 mL/min (>60); Globulin 3.1 g/dL (1.7-4.1); Glucose 118 mg/dL (70-100); HEMOLYSIS < 15 (0-50); Potassium 4.4 mmol/L (3.4-5.1); Sodium 136 mmol/L (137-145); Total Protein 7.8 g/dL (6.3-8.2)
== END ==
LOC: LAB 11:52
PROVIDERS: Family Provider Family Medicine; PCP Family Medicine; Referring Provider Family Medicine; Visit Provider Family Medicine
DX: E11.9 Type 2 diabetes mellitus without complications (principal); Z79.899 Other long term (current) drug therapy; I10 Essential (primary) hypertension
CPT/HCPCS: 36415; 80053; 83036

== ENCOUNTER → 2024-11-19 08:05 | Outpatient (CLI) | payer BC, SELFPAY ==
[2024-11-19 09:07] LABS: BUN Creatinine Ratio 19.4 (6-22); Blood Urea Nitrogen 14 mg/dL (9-20); Carbon Dioxide 20 mmol/L (22-32); Chloride 106 mmol/L (98-107); Cholesterol 117 mg/dL (140-199); Estimated Glomerular Filt Rate > 60 mL/min (>60); Glucose 161 mg/dL (70-100); HDL Cholesterol 40 mg/dL (40-60); HEMOLYSIS < 15 (0-50); LDL Cholesterol Calculated 56 mg/dL (<100); Potassium 3.9 mmol/L (3.4-5.1); Sodium 139 mmol/L (137-145); Triglycerides 105 mg/dL (35-150)
[2024-11-19 11:33] LABS: Creatinine Urine Random 157.36 mg/dL
[2024-11-19 12:54] LABS: Hemoglobin A1C% w Est Avg Glu 6.2 % (4.0-6.0)
== END ==
PROVIDERS: Family Provider Family Medicine; PCP Family Medicine; Referring Provider Family Medicine; Visit Provider Family Medicine
DX: E11.9 Type 2 diabetes mellitus without complications (principal)
CPT/HCPCS: 36415; 80048; 80061; 82043; 82570; 83036

== ENCOUNTER → 2025-03-18 12:51 | Outpatient (CLI) | payer BC, SELFPAY ==
--- NOTE | 2025-03-18 13:17 | EKG_ITS ---
[address] [address] Test Date: 2025-03-18 Pat Name: Montrell Henderson Department: [facility] Room: Gender: Male Agriculture Mechanic: EDELMIRA : 1970 Requested By: Order Number: [id number] Reading MD: Edouard Cobos Measurements Intervals [place] Rate: 58 P: 42 WI: 184 QRS: 54 QRSD: 108 T: 104 QT: 422 QTc: 414 Interpretive Statements Sinus bradycardia with sinus arrhythmia Nonspecific T wave abnormality Electronically Signed On 04-01-2025 8:11:12 PDT by Edouard Cobos
== END ==
PROVIDERS: Family Provider Family Medicine; PCP Family Medicine; Referring Provider Orthopaedic Surgery; Visit Provider Orthopaedic Surgery
DX: I10 Essential (primary) hypertension (principal)
CPT/HCPCS: 93005

== ENCOUNTER 2025-03-25 06:13 | Day surgery (SDC) | payer BC, SELFPAY ==
[2025-03-25] VITALS (10 sets, daily range): BP systolic 111–131; BP diastolic 56–81; PULSE 63–71; RESP 8–21; TEMP 36.2; O2SAT 90–96; BMI 49.6
[2025-03-25] MEDS: ACETAMINOPHEN 325 MG TABLET 975 MG PO (06:56)
[2025-03-25] MEDS: LACTATED RINGERS 1,000 ML 42 ML IV (06:56)
--- NOTE | 2025-03-25 07:21 | PM.PREOP ---
Pre-operative Note Interval Note History & Physical reviewed/Exam performed by Physician: Yes Changes to H&P: No
--- NOTE | 2025-03-25 07:32 | EKG_ITS ---
[address] [address] Test Date: 2025-03-25 Pat Name: Montrell Henderson Department: Room: Gender: Male Travel Registered Nurse Pacu: Raymond BANDA : 1970 Requested By: Order Number: [id number] Reading MD: Edouard Cobos Measurements Intervals [place] Rate: 66 P: 45 MD: 190 QRS: 45 QRSD: 110 T: 108 QT: 430 QTc: 450 Interpretive Statements Sinus rhythm with marked sinus arrhythmia Nonspecific T wave abnormality Electronically Signed On 04-01-2025 13:59:00 PDT by Edouard Cobos
[2025-03-25] MEDS: CEFAZOLIN VIAL 3 GM in SODIUM CHLORIDE 0.9% 100 ML IV (07:51)
--- NOTE | 2025-03-25 08:29 | SUR.OPER ---
Supine on padded OR bed with bed extenders x4 on both sides at chest and hips, Troop pillow under upper body, head on pillow, left arm secured on padded arm board at side, right arm on arm table, legs uncrossed, safety belt at thigh and waist, tape over blanket over lower legs.
[2025-03-25] MEDS: BUPIVACAINE 0.5% W/ EPI (PF) 30 ML VIAL INJ (08:34)
--- NOTE | 2025-03-25 10:09 | P.OP_ITS ---
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 Closure Type: primary Applied: implant(s) (Endo button as well as tenodesis screw.) Estimated Blood Loss (mL): 10 Tourniquet time (min): 82 Procedure in detail: On date of service, patient was met in the holding area. Operative site was signed and witnessed by the OR staff. The surgery once again discussed with patient and any remaining questions they had were answered fully. Patient was taken back to the operating theater and placed on the operating table in the supine position. Great care taken to ensure that all bony prominences were properly padded. A well-padded tourniquet was placed up along the right upper extremity. A timeout was performed to verify patient's name, procedure, and operative site. A diagonal incision was made starting at proximal medial and going to distal radial. The lateral antecubital cutaneous nerve was identified and protected. A 2nd incision was made over the biceps muscle to help retrieve the chronically re tracted biceps tendon. Patient had a chronic rupture that had retracted beyond the antecubital fossa. The tendon had rolled up into a ball which was quite scarred in. Pickups and Metzenbaum scissors were used to remove the pseudo tendinous tissue as well as the scar tissue allowing us to on roll the tendon back out into its normal position. Blunt dissection was also used to remove the significant amount of scar tissue around biceps muscle. This helped improve the overall excursion of the tendon at as well as the musculature. We then turned our attention to the bicipital tuberosity. Blunt dissection was performed allowing us to get down to the proximal radius. It was quite a bit of pseudo tendinous material around the bicipital tuberosity. This was sharply excised and the bony attachment was debrided using a periosteal elevator. Next, A guidewire was placed through the bicipital tuberosity. The proximal aspect of the cortex was drilled to 8 mm. The wound was then loosely irrigated to remove any bony fragments. The distal cortex was drilled to 4 mm. Sutures were then placed through the lateral holes of the Endo button. These were then placed into the guidewire and passed through a bony tunnel the Sutures were used to flip the Endobutton and put it into its appropriate position as a buttress. This provided a pandey repair of the biceps tendon. Next, a tenodesis screw was placed for additional fixation of the distal biceps tendon. Due to the chronic in nature we had to flex the elbow to almost 90? to get the tendon into the bony tunnel. The wound was copiously irrigated again and closed in a layered fashion. Patient was cleaned dried and dressed and he was placed into a splint. Patient was taken to the PACU in stable condition. Postoperatively, neurovascular check was done to the hand. Patient had a 2+ radial pulse and brisk cap refill. Patient had no signs of any posterior interosseous nerve dysfunction. Patient was able to easily fully extend the fingers and the thumb. Complications: none Post-operative Condition: stable Disposition: same day surgery Plan for aftercare: Patient will be in a hinged elbow brace locked at 90 for the next 6 weeks.
[2025-03-25] MEDS: OXYCODONE IR 5 MG TABLET PO (10:33)
[2025-03-25] MEDS: HYDROMORPHONE 1 MG INJ IV ×2 (10:35→10:45)
== END 2025-03-25 11:44 | disposition home or self-care (01) ==
PROVIDERS: Family Provider Family Medicine; PCP Family Medicine; Referring Provider Orthopaedic Surgery; Visit Provider Orthopaedic Surgery
PROC: (CPT 24341; principal; 2025-03-25 07:45)
DX: S46.211A Strain of muscle, fascia and tendon of other parts of biceps, right arm, initial encounter (principal); Y93.K1 Activity, walking an animal; X50.0XXA Overexertion from strenuous movement or load, initial encounter; E66.01 Morbid (severe) obesity due to excess calories; Z68.42 Body mass index [BMI] 45.0-49.9, adult; Z95.1 Presence of aortocoronary bypass graft; I25.2 Old myocardial infarction; G47.30 Sleep apnea, unspecified; I25.10 Atherosclerotic heart disease of native coronary artery without angina pectoris; I10 Essential (primary) hypertension; E11.9 Type 2 diabetes mellitus without complications; Z79.84 Long term (current) use of oral hypoglycemic drugs
CPT/HCPCS: 24342; 82962; 93005; J0330; J0690; J1171; J2250; J2405; J2704; J3010; J3490

== ENCOUNTER → 2025-05-23 09:42 | Outpatient (CLI) | payer BC, SELFPAY ==
[2025-05-23 10:52] LABS: Hemoglobin A1C% w Est Avg Glu 6.6 % (4.0-6.0)
== END ==
PROVIDERS: Family Provider Family Medicine; PCP Family Medicine; Referring Provider Family Medicine; Visit Provider Family Medicine
DX: E11.9 Type 2 diabetes mellitus without complications (principal)
CPT/HCPCS: 36415; 83036